=== PATIENT | female | born 1940 | race Caucasian/White ===

== ENCOUNTER 2017-03-10 16:28 | Inpatient (IN) | payer OTHER, MEDICARE ==
[~2017-03-10] VITALS: Ht 160 cm; Wt 52.2 kg
[2017-03-10 16:39] VITALS: BP_SYST 153
[2017-03-10] MEDS ORDERED: LIDOCAINE/EPI 2% 1:100000 20 ML VIAL INJ ONE (17:00)
[2017-03-10] MEDS ORDERED: ACETAMINOPHEN 500 MG TABLET PO ONE (17:00)
[2017-03-10] MEDS ORDERED: BACITRACIN 1 GM OINT TP ONE (17:00)
[2017-03-10 17:39] LABS: PROTHROMBIN TIME 10.5 SECS (9.5-12.5)
[2017-03-10 18:42] LABS: ANION GAP 8 (5-15); CALCIUM 9.3 mg/dL (8.4-11.0); CHLORIDE 107 mmol/L (98-107); CREATININE 1.13 mg/dL (0.55-1.30); GLUCOSE 102 mg/dL (70-99); POTASSIUM 4.2 mmol/L (3.5-5.1); SODIUM SERUM 140 mmol/L (136-145); UREA NITROGEN, BLOOD 21 mg/dL (8-21)
[2017-03-10 18:47] LABS: ALANINE AMINOTRANSFERASE 24 U/L (12-78); ALBUMIN 3.8 g/dL (3.4-4.8); ASPARTATE AMINOTRANSFERASE 23 U/L (10-37); TOTAL BILIRUBIN 0.6 mg/dL (0.0-1.0); TOTAL PROTEIN, SERUM 6.5 g/dL (6.4-8.3)
[2017-03-10 19:09] LABS: BASOPHILS % (AUTO) 0.8 % (0.0-2.0); EOSINOPHILS # (AUTO) 0.1 K/uL (0.0-0.4); EOSINOPHILS % (AUTO) 1.3 % (0.0-4.0); HEMATOCRIT 36.6 % (36-48); HEMOGLOBIN 12.2 g/dL (12.0-16.0); LYMPHOCYTES % (AUTO) 22.9 % (20.5-51.5); MEAN CORPUSCULAR HEMOGLOBIN 39 pg (27-31); MEAN CORPUSCULAR HGB CONC 34 % (32-36); MEAN CORPUSCULAR VOLUME 117 fL (79.0-98.0); MONOCYTES # (AUTO) 0.3 K/uL (0.0-1.0); NEUTROPHILS # (AUTO) 2.8 K/uL (1.8-7.7); PLATELET COUNT (AUTO) 233 K/uL (130-430); RED BLOOD CELL COUNT(AUTO) 3.13 MIL/uL (4.2-6.2); RED CELL DISTRIBUTION WIDTH 12.2 % (9.0-15.0); WHITE BLOOD COUNT (AUTO) 4.2 K/uL (4.8-10.8)
[2017-03-10] MEDS ORDERED: ASPIRIN 81 MG TABLET(ECOTRIN) PO ONE (20:15)
[2017-03-10] MEDS ORDERED: LEVO50TA77 PO (21:27)
[2017-03-10] MEDS ORDERED: NEBI5TAB3 PO (21:27)
[2017-03-10] MEDS ORDERED: HYD500 PO (21:27)
[2017-03-10 22:20] VITALS: BP_SYST 145
[2017-03-10 22:36] VITALS: BP_SYST 145
[2017-03-11] MEDS: LEVOTHYROXINE SODIUM 0.05 MG TABLET PO SCH (06:13)
[2017-03-11] MEDS: IBUPROFEN 800 MG TABLET PO PRN ×2 (06:13→20:03)
[2017-03-11 09:22] VITALS: BP_SYST 133
[2017-03-11] MEDS: HYDROXYUREA 500 MG CAPSULE (HYDREA) PO SCH ×2 (09:59→21:24)
[2017-03-11] MEDS: ASPIRIN 81 MG TAB.CHEW PO SCH (09:59)
[2017-03-11] MEDS: ATORVASTATIN 20 MG TABLET PO SCH (09:59)
[2017-03-11 12:29] VITALS: BP_SYST 140
[2017-03-11] MEDS ORDERED: VALSARTAN 160 MG TABLET (DIOVAN) PO ONE (15:00)
[2017-03-11 16:14] VITALS: BP_SYST 134
[2017-03-11 20:00] VITALS: BP_SYST 141
[2017-03-11] MEDS ORDERED: NEBIVOLOL HCL 5 MG TABLET PO SCH (21:00)
[2017-03-11] MEDS: VALSARTAN 160 MG TABLET (DIOVAN) PO SCH (21:27)
[2017-03-12] VITALS (7 sets, daily range): BP systolic 111–151
[2017-03-12] MEDS: LEVOTHYROXINE SODIUM 0.05 MG TABLET PO SCH (06:11)
[2017-03-12 06:32] LABS: BASOPHILS % (AUTO) 0.6 % (0.0-2.0); EOSINOPHILS # (AUTO) 0.1 K/uL (0.0-0.4); EOSINOPHILS % (AUTO) 1.8 % (0.0-4.0); HEMOGLOBIN 12.2 g/dL (12.0-16.0); LYMPHOCYTES % (AUTO) 22.7 % (20.5-51.5); MEAN CORPUSCULAR HEMOGLOBIN 40 pg (27-31); MEAN CORPUSCULAR HGB CONC 34 % (32-36); MEAN CORPUSCULAR VOLUME 117 fL (79.0-98.0); MONOCYTES # (AUTO) 0.3 K/uL (0.0-1.0); NEUTROPHILS # (AUTO) 2.8 K/uL (1.8-7.7); NEUTROPHILS % (AUTO) 66.9 % (40.0-70.0); PLATELET COUNT (AUTO) 229 K/uL (130-430); RED BLOOD CELL COUNT(AUTO) 3.07 MIL/uL (4.2-6.2); WHITE BLOOD COUNT (AUTO) 4.2 K/uL (4.8-10.8)
[2017-03-12 06:51] LABS: ANION GAP 6 (5-15); CALCIUM 8.9 mg/dL (8.4-11.0); CHLORIDE 107 mmol/L (98-107); CREATININE 1.06 mg/dL (0.55-1.30); GLUCOSE 95 mg/dL (70-99); POTASSIUM 4.3 mmol/L (3.5-5.1); SODIUM SERUM 143 mmol/L (136-145); UREA NITROGEN, BLOOD 18 mg/dL (8-21)
[2017-03-12] MEDS: ATORVASTATIN 20 MG TABLET PO SCH (09:02)
[2017-03-12] MEDS: ASPIRIN 81 MG TAB.CHEW PO SCH (09:02)
[2017-03-12] MEDS: HYDROXYUREA 500 MG CAPSULE (HYDREA) PO SCH ×2 (09:02→21:18)
[2017-03-12] MEDS: VALSARTAN 160 MG TABLET (DIOVAN) PO SCH ×2 (09:02→21:18)
[2017-03-12] MEDS: IBUPROFEN 800 MG TABLET PO PRN ×2 (15:49→21:18)
[2017-03-13] MEDS: LEVOTHYROXINE SODIUM 0.05 MG TABLET PO SCH (06:06)
[2017-03-13 08:00] VITALS: BP_SYST 131
[2017-03-13] MEDS: ATORVASTATIN 20 MG TABLET PO SCH (08:33)
[2017-03-13] MEDS: ASPIRIN 81 MG TAB.CHEW PO SCH (08:33)
[2017-03-13] MEDS: HYDROXYUREA 500 MG CAPSULE (HYDREA) PO SCH (08:33)
[2017-03-13] MEDS: VALSARTAN 160 MG TABLET (DIOVAN) PO SCH (09:46)
[2017-03-13 12:00] VITALS: BP_SYST 133
[2017-03-13 16:10] VITALS: BP_SYST 125
[2017-03-13 16:34] VITALS: BP_SYST 125
== END 2017-03-13 17:07 | disposition home or self-care (01) | DRG 988 ==
LOC: SED 16:30 → STU 20:45
PROVIDERS: ADMIT Family Medicine; ATTEND Family Medicine
PROC: 0WQ0XZZ Repair Head, External Approach (ICD-10-PCS; principal; 2017-03-10)
DX: R55 Syncope and collapse (principal); C94.6 Myelodysplastic disease, not elsewhere classified; R00.1 Bradycardia, unspecified; S01.81XA Laceration without foreign body of other part of head, initial encounter; E03.9 Hypothyroidism, unspecified; E11.9 Type 2 diabetes mellitus without complications; E78.5 Hyperlipidemia, unspecified; I10 Essential (primary) hypertension; W18.30XA Fall on same level, unspecified, initial encounter; Y93.89 Activity, other specified; Y92.009 Unspecified place in unspecified non-institutional (private) residence as the place of occurrence of the external cause; Y99.8 Other external cause status; Z79.899 Other long term (current) drug therapy; Z90.89 Acquired absence of other organs; Z90.49 Acquired absence of other specified parts of digestive tract
CPT/HCPCS: 36415; 70450-TC; 71010; 80048; 80053; 82550-TC; 84484; 85025; 85610-TC; 85730-TC; 93005; 93306

== ENCOUNTER 2021-06-05 10:00 | Outpatient (CLI) | payer OTHER, MEDICARE ==
[~2021-06-05 10:00] MED LIST: HYD500 PO; SYN50 PO
== END 2021-06-05 19:24 | disposition home or self-care (01) ==
LOC: SMA 10:00
PROVIDERS: ATTEND Family Medicine
DX: Z12.31 Encounter for screening mammogram for malignant neoplasm of breast (principal)
CPT/HCPCS: 77067

== ENCOUNTER 2024-02-04 15:10 | Inpatient (IN) | payer OTHER, MEDICARE ==
[~2024-02-04] VITALS: Ht 157.5 cm; Wt 67.3 kg
[2024-02-04 15:10] VITALS: BP_SYST 124; PULSE 50; RESP 20; TEMP 97.2; O2SAT 99
[2024-02-04 15:51] LABS: BASOPHILS % (AUTO) 0.5 % (0.0-2.0); EOSINOPHILS % (AUTO) 0.3 % (0.0-4.0); HEMATOCRIT 32.2 % (36-48); HEMOGLOBIN 11.3 g/dL (12.0-16.0); LYMPHOCYTES % (AUTO) 17.5 % (20.5-51.5); MEAN CORPUSCULAR HEMOGLOBIN 39 pg (27-31); MEAN CORPUSCULAR HGB CONC 35 % (32-36); MEAN CORPUSCULAR VOLUME 110 fL (79.0-98.0); MONOCYTES # (AUTO) 0.4 K/uL (0.0-1.0); MONOCYTES % (AUTO) 6.9 % (1.7-9.3); NEUTROPHILS # (AUTO) 4.3 K/uL (1.8-7.7); NEUTROPHILS % (AUTO) 74.8 % (40.0-70.0); PLATELET COUNT (AUTO) 219 K/uL (130-430); RED BLOOD CELL COUNT(AUTO) 2.93 MIL/uL (4.2-6.2); WHITE BLOOD COUNT (AUTO) 5.7 K/uL (4.8-10.8)
[2024-02-04 16:19] LABS: ANION GAP 12 (5-15); CARBON DIOXIDE 26 mmol/L (23-29); CHLORIDE 104 mmol/L (98-107); CREATININE 1.01 mg/dL (0.55-1.30); GLUCOSE 94 mg/dL (74-106); POTASSIUM 4.7 mmol/L (3.5-5.1); SODIUM SERUM 142 mmol/L (136-145); UREA NITROGEN, BLOOD 23 mg/dL (8-21)
[2024-02-04 16:40] LABS: ANISOCYTOSIS 1+
[2024-02-04] MEDS ORDERED: LOSA50TA28 PO (17:36)
[2024-02-04] MEDS ORDERED: ESCI5TAB16 PO (17:36)
[2024-02-04] MEDS ORDERED: ROSU5TAB13 PO (17:36)
[2024-02-04] MEDS ORDERED: HYDR500C2 PO (17:36)
[2024-02-04] MEDS ORDERED: NITROGLYCERIN 0.4 MG TAB.SUBL SL PRN (19:00)
[2024-02-04] MEDS ORDERED: ROSUVASTATIN CALCIUM 5 MG/TAB (CRESTOR) PO SCH (19:00)
[2024-02-04 21:03] VITALS: BP_SYST 158; PULSE 47; RESP 16; TEMP 98.6; O2SAT 97
[2024-02-04] MEDS: DONEPEZIL HCL 5 MG TABLET (ARICEPT) PO SCH (22:17)
[2024-02-04] MEDS: ATORVASTATIN 20 MG TABLET PO SCH (22:17)
[2024-02-04] MEDS: ENOXAPARIN SODIUM 40 MG/0.4 ML SYRINGE SUBCUT SCH (22:17)
[2024-02-05 00:19] VITALS: BP_SYST 131; PULSE 48; RESP 18; TEMP 98.1; O2SAT 98
[2024-02-05] MEDS: LEVOTHYROXINE SODIUM 0.05 MG TABLET PO SCH (06:17)
[2024-02-05 07:00] VITALS: O2SAT 99
[2024-02-05 07:32] LABS: ALANINE AMINOTRANSFERASE 12 U/L (12-78); ALBUMIN 3.2 g/dL (3.4-4.8); ANION GAP 11 (5-15); ASPARTATE AMINOTRANSFERASE 10 U/L (10-37); CALCIUM 8.9 mg/dL (8.4-11.0); CARBON DIOXIDE 26 mmol/L (23-29); CHLORIDE 107 mmol/L (98-107); CHOLESTEROL 173 mg/dL (<200); CREATININE 0.95 mg/dL (0.55-1.30); GLUCOSE 85 mg/dL (74-106); HDL CHOLESTEROL 75 mg/dL (>55); POTASSIUM 4.9 mmol/L (3.5-5.1); SODIUM SERUM 144 mmol/L (136-145); TOTAL BILIRUBIN 0.7 mg/dL (0.0-1.0); TOTAL PROTEIN, SERUM 5.8 g/dL (6.4-8.3); TRIGLYCERIDES 68 mg/dL (30-150); UREA NITROGEN, BLOOD 19 mg/dL (8-21)
[2024-02-05 08:00] VITALS: BP_SYST 136; PULSE 53; RESP 17; TEMP 97.8; TEMP 98.2; O2SAT 99
[2024-02-05] MEDS ORDERED: ESCITALOPRAM OXALATE 10 MG TABLET PO SCH (09:00)
[2024-02-05] MEDS: CITALOPRAM HYDROBROMIDE 20 MG TABLET PO SCH (09:59)
[2024-02-05] MEDS: ASPIRIN 81 MG TAB.CHEW PO SCH (10:00)
[2024-02-05] MEDS: CHOLECALCIFEROL (VITAMIN D3) 5,000 UNIT TABLET PO SCH (10:00)
[2024-02-05] MEDS: LOSARTAN POTASSIUM 50 MG TABLET (COZAAR) PO SCH (10:01)
[2024-02-05 12:06] VITALS: BP_SYST 142; PULSE 50; RESP 17; TEMP 98.2; O2SAT 98
[2024-02-05 16:52] VITALS: BP_SYST 132; PULSE 52; RESP 18; TEMP 98.4; O2SAT 99
[2024-02-06 08:00] VITALS: BP_SYST 116; PULSE 56; RESP 16; TEMP 97.9; O2SAT 97
[2024-02-06] MEDS: THEOPHYLLINE ANHYDROUS 80 MG/15 ML UDC PO SCH (10:39)
[2024-02-06 12:00] VITALS: BP_SYST 117; PULSE 53; RESP 16; TEMP 97.6; O2SAT 97
[2024-02-06 12:33] VITALS: O2SAT 97
[2024-02-06 16:00] VITALS: BP_SYST 140; PULSE 57; RESP 18; TEMP 97.8; O2SAT 98
[2024-02-06 18:24] VITALS: BP_SYST 140; PULSE 57; RESP 18; TEMP 97.8; O2SAT 98
== END 2024-02-06 18:55 | disposition home or self-care (01) | DRG 206 ==
LOC: SED 15:10 → STU 17:33
PROVIDERS: ADMIT Family Medicine; ATTEND Family Medicine
DX: M94.0 Chondrocostal junction syndrome [Tietze] (principal); D47.1 Chronic myeloproliferative disease; D64.9 Anemia, unspecified; E03.9 Hypothyroidism, unspecified; I10 Essential (primary) hypertension; F03.90 Unspecified dementia, unspecified severity, without behavioral disturbance, psychotic disturbance, mood disturbance, and anxiety; I45.10 Unspecified right bundle-branch block; Z86.73 Personal history of transient ischemic attack (TIA), and cerebral infarction without residual deficits; Z87.891 Personal history of nicotine dependence; Z79.899 Other long term (current) drug therapy
CPT/HCPCS: 36415; 71045; 80048; 80053; 80061; 83735; 83880; 84443; 84484; 85025; 93005; 93306; 97112-GP; 97116-GP; 99285; G0378; J1650

== ENCOUNTER 2024-05-24 13:54 | Inpatient (IN) | payer OTHER, MEDICARE ==
[~2024-05-24] VITALS: Ht 152.4 cm; Wt 73.7 kg
[~2024-05-24 13:54] MED LIST changes: +ESCI5TAB16 PO; -HYD500 PO; +HYDR500C2 PO; +LOSA50TA28 PO; +ROSU5TAB43 PO; +THEO300T45 PO
[2024-05-24 13:55] VITALS: BP_SYST 115; PULSE 58; RESP 19; TEMP 98.7; O2SAT 98
[2024-05-24 14:46] LABS: BASOPHILS % (AUTO) 0.8 % (0.0-2.0); EOSINOPHILS % (AUTO) 0.5 % (0.0-4.0); HEMATOCRIT 32.2 % (36-48); HEMOGLOBIN 11.3 g/dL (12.0-16.0); LYMPHOCYTES # (AUTO) 0.9 K/uL (1.0-5.5); LYMPHOCYTES % (AUTO) 19.8 % (20.5-51.5); MEAN CORPUSCULAR HEMOGLOBIN 39 pg (27-31); MEAN CORPUSCULAR HGB CONC 35 % (32-36); MEAN CORPUSCULAR VOLUME 111 fL (79.0-98.0); MONOCYTES # (AUTO) 0.4 K/uL (0.0-1.0); MONOCYTES % (AUTO) 8.7 % (1.7-9.3); NEUTROPHILS % (AUTO) 70.2 % (40.0-70.0); PLATELET COUNT (AUTO) 209 K/uL (130-430); RED BLOOD CELL COUNT(AUTO) 2.91 MIL/uL (4.2-6.2); RED CELL DISTRIBUTION WIDTH 14.2 % (9.0-15.0); WHITE BLOOD COUNT (AUTO) 4.3 K/uL (4.8-10.8)
[2024-05-24 14:46] LABS: BILIRUBIN,URINE NEGATIVE (NEGATIVE); BLOOD, URINE NEGATIVE (NEGATIVE); CLARITY/URINE CLEAR (CLEAR); COLOR,URINE YELLOW (YELLOW); GLUCOSE,URINE NEGATIVE (NEGATIVE); KETONES,URINE TRACE (NEGATIVE); LEUKOCYTE ESTERASE ,URINE NEGATIVE (NEGATIVE); NITRITE, URINE NEGATIVE (NEGATIVE); PROTEIN URINE NEGATIVE (NEGATIVE)
[2024-05-24 14:50] LABS: PROTHROMBIN TIME 10.4 SECS (9.5-12.5)
[2024-05-24 15:09] LABS: ALANINE AMINOTRANSFERASE 7 U/L (12-78); ALBUMIN 3.5 g/dL (3.4-4.8); ANION GAP 9 (5-15); ASPARTATE AMINOTRANSFERASE 7 U/L (10-37); BILIRUBIN,DIRECT 0.3 mg/dL (0.0-0.3); CARBON DIOXIDE 26 mmol/L (23-29); CHLORIDE 104 mmol/L (98-107); CREATININE 0.98 mg/dL (0.55-1.30); GLUCOSE 103 mg/dL (74-106); POTASSIUM 4.2 mmol/L (3.5-5.1); SODIUM SERUM 139 mmol/L (136-145); TOTAL BILIRUBIN 0.5 mg/dL (0.0-1.0); TOTAL PROTEIN, SERUM 6.1 g/dL (6.4-8.3); UREA NITROGEN, BLOOD 23 mg/dL (8-21)
[2024-05-24 15:14] LABS: INFLUENZA TYPE A Negative (NEGATIVE)
[2024-05-24 15:15] LABS: INFLUENZA TYPE B POSITIVE (NEGATIVE)
[2024-05-24] MEDS ORDERED: LEVO50TA8 PO (15:18)
[2024-05-24] MEDS: NACL 0.9% 1,000 ML IV ONE (15:32)
[2024-05-24] MEDS: OSELTAMIVIR PHOSPHATE 75 MG CAPSULE PO ONE ×2 (15:33→22:40)
[2024-05-24] MEDS: ASPIRIN 81 MG TABLET(ECOTRIN) PO ONE (15:33)
[2024-05-24] MEDS: NITROGLYCERIN 1 INCH (GM) OINT. TP ONE (15:34)
[2024-05-24] MEDS: KETOROLAC TROMETHAMINE 15 MG VIAL IVP ONE (16:37)
[2024-05-24] MEDS ORDERED: NITROGLYCERIN 0.4 MG TAB.SUBL SL PRN (18:30)
[2024-05-24 20:00] VITALS: BP_SYST 111; PULSE 43; RESP 18; TEMP 98.2; O2SAT 98
[2024-05-24] MEDS: THEOPHYLLINE ANHYDROUS 200 MG CAP.ER.24H PO ONE (21:00)
[2024-05-24] MEDS: ATORVASTATIN 20 MG TABLET PO SCH (22:40)
[2024-05-24] MEDS: ENOXAPARIN SODIUM 40 MG/0.4 ML SYRINGE SUBCUT SCH (22:41)
[2024-05-25] VITALS: BP_SYST 117; PULSE 73; RESP 18; TEMP 97.6; O2SAT 94
[2024-05-25] MEDS: LEVOTHYROXINE SODIUM 0.05 MG TABLET PO SCH (06:29)
[2024-05-25 07:31] LABS: BASOPHILS # (AUTO) 0.1 K/uL (0.0-0.2); BASOPHILS % (AUTO) 1.7 % (0.0-2.0); EOSINOPHILS # (AUTO) 0.1 K/uL (0.0-0.4); EOSINOPHILS % (AUTO) 1.9 % (0.0-4.0); HEMATOCRIT 31.1 % (36-48); HEMOGLOBIN 10.6 g/dL (12.0-16.0); LYMPHOCYTES # (AUTO) 1.2 K/uL (1.0-5.5); LYMPHOCYTES % (AUTO) 35.5 % (20.5-51.5); MEAN CORPUSCULAR HEMOGLOBIN 38 pg (27-31); MEAN CORPUSCULAR HGB CONC 34 % (32-36); MEAN CORPUSCULAR VOLUME 112 fL (79.0-98.0); MONOCYTES # (AUTO) 0.4 K/uL (0.0-1.0); NEUTROPHILS # (AUTO) 1.6 K/uL (1.8-7.7); NEUTROPHILS % (AUTO) 49.9 % (40.0-70.0); PLATELET COUNT (AUTO) 177 K/uL (130-430); RED BLOOD CELL COUNT(AUTO) 2.78 MIL/uL (4.2-6.2); WHITE BLOOD COUNT (AUTO) 3.3 K/uL (4.8-10.8)
[2024-05-25 07:33] LABS: ANION GAP 4 (5-15); CALCIUM 8.5 mg/dL (8.4-11.0); CARBON DIOXIDE 30 mmol/L (23-29); CHLORIDE 107 mmol/L (98-107); CREATININE 1.08 mg/dL (0.55-1.30); GLUCOSE 91 mg/dL (74-106); POTASSIUM 4.3 mmol/L (3.5-5.1); SODIUM SERUM 141 mmol/L (136-145); UREA NITROGEN, BLOOD 18 mg/dL (8-21)
[2024-05-25 08:00] VITALS: BP_SYST 153; PULSE 46; RESP 22; TEMP 97.9; O2SAT 97
[2024-05-25 08:06] LABS: RED CELL DISTRIBUTION WIDTH 13.8 % (9.0-15.0)
[2024-05-25] MEDS: LOSARTAN POTASSIUM 50 MG TABLET (COZAAR) PO SCH (08:27)
[2024-05-25] MEDS: ASPIRIN 81 MG TAB.CHEW PO ONE (08:27)
[2024-05-25] MEDS: HYDROXYUREA 500 MG CAPSULE (HYDREA) PO SCH (08:28)
[2024-05-25] MEDS: CITALOPRAM HYDROBROMIDE 20 MG TABLET PO SCH (08:28)
[2024-05-25] MEDS: THEOPHYLLINE ANHYDROUS 80 MG/15 ML UDC PO SCH (08:28)
[2024-05-25] MEDS ORDERED: ROSUVASTATIN CALCIUM 5 MG/TAB (CRESTOR) PO SCH (09:00)
[2024-05-25] MEDS ORDERED: THEOPHYLLINE ANHYDROUS 300 MG TAB.SR.12H PO SCH (09:00)
[2024-05-25] MEDS ORDERED: NON-FORMULARY MEDICATION (Escitalopram Oxalate 1 TAB) PO SCH (09:00)
[2024-05-25 11:05] VITALS: BP_SYST 106; PULSE 52; RESP 16; TEMP 97.9; O2SAT 99
[2024-05-25] MEDS: OSELTAMIVIR PHOSPHATE 30 MG CAPSULE PO SCH (11:17)
[2024-05-25 16:00] VITALS: BP_SYST 143; PULSE 47; RESP 20; TEMP 96.9; O2SAT 98
[2024-05-25] MEDS: clonazePAM 0.5 MG TABLET PO ONE (18:29)
[2024-05-25 18:40] LABS: CHOLESTEROL 150 mg/dL (<200); HDL CHOLESTEROL 70 mg/dL (>55); TRIGLYCERIDES 57 mg/dL (30-150)
[2024-05-25 20:00] VITALS: BP_SYST 129; PULSE 51; RESP 18; TEMP 97.3; O2SAT 98
[2024-05-25] MEDS: ATORVASTATIN 20 MG TABLET PO SCH (20:52)
[2024-05-25] MEDS: clonazePAM 0.5 MG TABLET PO SCH (20:53)
[2024-05-26 01:19] VITALS: BP_SYST 106; PULSE 50; RESP 16; TEMP 97.5; O2SAT 97
[2024-05-26 07:14] LABS: EOSINOPHILS # (AUTO) 0.1 K/uL (0.0-0.4); HEMATOCRIT 32.6 % (36-48); HEMOGLOBIN 11.2 g/dL (12.0-16.0); LYMPHOCYTES # (AUTO) 1.6 K/uL (1.0-5.5); LYMPHOCYTES % (AUTO) 43.9 % (20.5-51.5); MEAN CORPUSCULAR HEMOGLOBIN 38 pg (27-31); MEAN CORPUSCULAR HGB CONC 34 % (32-36); MEAN CORPUSCULAR VOLUME 110 fL (79.0-98.0); MONOCYTES # (AUTO) 0.3 K/uL (0.0-1.0); MONOCYTES % (AUTO) 8.3 % (1.7-9.3); NEUTROPHILS # (AUTO) 1.6 K/uL (1.8-7.7); NEUTROPHILS % (AUTO) 44.8 % (40.0-70.0); PLATELET COUNT (AUTO) 200 K/uL (130-430); RED BLOOD CELL COUNT(AUTO) 2.96 MIL/uL (4.2-6.2); RED CELL DISTRIBUTION WIDTH 13.9 % (9.0-15.0); WHITE BLOOD COUNT (AUTO) 3.6 K/uL (4.8-10.8)
[2024-05-26] MEDS ORDERED: DOCUSATE SODIUM 100 MG CAPSULE PO PRN (07:45)
[2024-05-26 08:00] VITALS: BP_SYST 122; PULSE 58; RESP 18; TEMP 98.6; O2SAT 97
[2024-05-26 08:18] LABS: ANION GAP 2 (5-15); CALCIUM 8.9 mg/dL (8.4-11.0); CARBON DIOXIDE 31 mmol/L (23-29); CHLORIDE 106 mmol/L (98-107); CREATININE 1.04 mg/dL (0.55-1.30); GLUCOSE 92 mg/dL (74-106); SODIUM SERUM 139 mmol/L (136-145); UREA NITROGEN, BLOOD 14 mg/dL (8-21)
[2024-05-26 12:46] VITALS: BP_SYST 107; PULSE 52; RESP 17; TEMP 98.6; O2SAT 95
[2024-05-26 16:37] VITALS: BP_SYST 124; PULSE 56; RESP 18; TEMP 98.1
[2024-05-26 19:51] VITALS: O2SAT 97
[2024-05-26 20:00] VITALS: BP_SYST 134; PULSE 60; RESP 18; TEMP 98.8; O2SAT 97
[2024-05-27 00:30] VITALS: BP_SYST 117; PULSE 64; RESP 18; TEMP 98.7; O2SAT 98
[2024-05-27 06:41] LABS: BASOPHILS % (AUTO) 0.7 % (0.0-2.0); EOSINOPHILS % (AUTO) 0.6 % (0.0-4.0); HEMATOCRIT 33.8 % (36-48); HEMOGLOBIN 11.7 g/dL (12.0-16.0); LYMPHOCYTES # (AUTO) 0.5 K/uL (1.0-5.5); LYMPHOCYTES % (AUTO) 15.2 % (20.5-51.5); MEAN CORPUSCULAR HEMOGLOBIN 38 pg (27-31); MEAN CORPUSCULAR HGB CONC 35 % (32-36); MEAN CORPUSCULAR VOLUME 111 fL (79.0-98.0); MONOCYTES # (AUTO) 0.5 K/uL (0.0-1.0); MONOCYTES % (AUTO) 14.6 % (1.7-9.3); NEUTROPHILS # (AUTO) 2.2 K/uL (1.8-7.7); NEUTROPHILS % (AUTO) 68.9 % (40.0-70.0); PLATELET COUNT (AUTO) 192 K/uL (130-430); RED BLOOD CELL COUNT(AUTO) 3.05 MIL/uL (4.2-6.2); RED CELL DISTRIBUTION WIDTH 13.7 % (9.0-15.0); WHITE BLOOD COUNT (AUTO) 3.2 K/uL (4.8-10.8)
[2024-05-27 06:46] LABS: ANION GAP 6 (5-15); CARBON DIOXIDE 31 mmol/L (23-29); CHLORIDE 104 mmol/L (98-107); CREATININE 1.03 mg/dL (0.55-1.30); GLUCOSE 93 mg/dL (74-106); POTASSIUM 4.3 mmol/L (3.5-5.1); SODIUM SERUM 141 mmol/L (136-145); UREA NITROGEN, BLOOD 13 mg/dL (8-21)
[2024-05-27 08:00] VITALS: BP_SYST 119; PULSE 66; RESP 20; TEMP 98.6; O2SAT 98
[2024-05-27 12:49] VITALS: BP_SYST 105; PULSE 57; RESP 16; TEMP 98.4; O2SAT 99
[2024-05-27 18:47] VITALS: BP_SYST 115; PULSE 60; RESP 16; TEMP 98.8; O2SAT 98
[2024-05-27 20:30] VITALS: BP_SYST 113; PULSE 64; RESP 18; TEMP 98.5
[2024-05-28] VITALS (9 sets, daily range): BP systolic 96–116; PULSE 64–78; RESP 18; TEMP 97.8–99; O2SAT 85–99
[2024-05-29] VITALS: BP_SYST 117; PULSE 61; RESP 18; TEMP 98.6; O2SAT 97
[2024-05-29 08:00] VITALS: BP_SYST 159; PULSE 89; RESP 18; TEMP 98.1; O2SAT 99
[2024-05-29 10:13] VITALS: O2SAT 98
[2024-05-29 12:00] VITALS: BP_SYST 112; PULSE 78; RESP 18; TEMP 98.1; O2SAT 99
[2024-05-29] MEDS ORDERED: CLON0.5T4 PO (13:27)
[2024-05-29 13:51] VITALS: BP_SYST 120; PULSE 63; RESP 18; TEMP 98.1; O2SAT 97
== END 2024-05-29 14:23 | disposition home or self-care (01) | DRG 206 ==
LOC: SED 13:54 → STU 17:46
PROVIDERS: ADMIT Student in an Organized Health Care Education/Training Program; ATTEND Family Medicine
DX: M94.0 Chondrocostal junction syndrome [Tietze] (principal); D47.1 Chronic myeloproliferative disease; F03.94 Unspecified dementia, unspecified severity, with anxiety; I24.89 Other forms of acute ischemic heart disease; E03.9 Hypothyroidism, unspecified; J10.1 Influenza due to other identified influenza virus with other respiratory manifestations; F41.9 Anxiety disorder, unspecified; E78.5 Hyperlipidemia, unspecified; I10 Essential (primary) hypertension; Z79.899 Other long term (current) drug therapy; Z88.8 Allergy status to other drugs, medicaments and biological substances
CPT/HCPCS: 36415; 71045; 80048; 80061; 80076; 81001; 81003; 83605; 83735; 83880; 84443; 84484; 85025; 85610; 85730; 87040; 87081; 87086; 93005; 93306; 97110-GP; 97112-GP; 97116-GP; 97530-GP; 99285; G0378; G9035; J1650; J1885